=== PATIENT | male | born 1960 | race Caucasian/White ===

== ENCOUNTER 2024-08-12 16:52 | Inpatient (IN) ==
--- NOTE | 2024-08-12 17:20 | Emergency Department Note ---
Impression & Plan Hematuria ED Provider Note NAME: MEME FABIAN AGE: 64 SEX: M : 1960 ARRIVES VIA: Walk-In INFORMANT: Patient, ED PROVIDER(S): Joseph Thompson DO CHIEF COMPLAINT: Hematuria HPI: The patient is a 64-year-old male who presented to the emergency department because of hematuria. The patient had a prostate procedure 4 weeks ago with our urology group. He was having bleeding after the procedure but then started having decrease in the bleeding approximately 2 weeks ago. He had an unfortunate loss of his family pet yesterday and when he lifted the animal up he started having pain and pulling down into his perineum. He then started having significant hematuria. The patient denies having any nausea or vomiting. He denies having any fever or back pain. He initially presented to [facility] and was there since this morning receiving continuous bladder irrigation. They were unable to have urology see him there or get him transferred to our facility so the patient signed out AGAINST MEDICAL ADVICE and came to our facility. ROS: See above HPI for pertinent positives & negatives. A total of 10 systems reviewed and were otherwise negative. PAST MEDICAL HISTORY: See Below PAST SURGICAL HISTORY: See Below FAMILY HISTORY: See Below SOCIAL HISTORY: See Below HOME MEDICATIONS: See Below ALLERGIES: See Below VITALS: See Below PHYSICAL EXAMINATION: GENERAL: The patient is awake and alert. The patient is anxious appearing. EYES: The conjunctivae are clear. The pupils are round and reactive. EARS, NOSE, MOUTH AND THROAT: The nose is without any evidence of any deformity. NECK: The neck is nontender and supple. RESPIRATORY: Normal respiratory effort is noted there is no evidence of wheezing rhonchi or rales CARDIOVASCULAR: Regular rate and rhythm noted there no murmurs rubs or gallops normal S1 normal S2. GASTROINTESTINAL: The abdomen is distended. There is suprapubic tenderness to palpation but no guarding or rigidity. MUSCULOSKELETAL/EXTREMITIES: There is no evidence of gross deformity full range of motion is noted in the hips and shoulders. SKIN: Is cool and pale. There is no pedal edema. NEUROLOGIC: Patient is awake alert and oriented x3 MEDICAL DECISION MAKING: The patient is a 64-year-old male who presented to the emergency department for an evaluation of hematuria. The patient was experiencing gross hematuria. He had a urologic procedure 4 weeks ago. The patient does take Coumadin. He was seen in another emergency department and had CBI started. The patient signed out AGAINST MEDICAL ADVICE from that facility and came to our facility because of urologic backup. The patient did bring a disc with his CAT scan. This was loaded onto the synapse. I discussed the patient's laboratory results with him. I discussed his condition with urology. At this time the patient has had continued CBI with some good clearing of his urine. He was feeling much better. Vital signs are reassuring. I discussed this case with the on-call [facility] hospitalist. They have agreed to evaluate the patient in the emergency department. Triage Nursing notes reviewed. Prior medical records reviewed Vital Signs: reviewed and remarkable for no significant abnormalities Differential diagnosis: Etiologies such as appendicitis, diverticulitis, obstruction, inflammatory bowel disease, renal colic, PUD, biliary pathology, pancreatitis, mesenteric ischemia, aortic pathology, infections, genitourinary, UTI, perforated viscus, as well as others were entertained. ER treatment provided: See below Diagnostics interpreted by me: ECG: EKG was obtained in the emergency department. My interpretation is atrial paced rhythm at 60 bpm. There was no ectopy. There was no ton[place] beats noted. There was no acute ST segment abnormalities noted. Cardiac Monitoring: An order was placed for continuous cardiac monitoring. The monitor shows a rate of 60 bpm with paced rhythm. Laboratory studies: As stated above and show below. Imaging studies: See below. Consultation(s): I discussed this case with Dr. Carmona who is the patient's primary urologist. I discussed this case with Dr. Rojas who is on-call for the [facility]. Past Med/Surg History Problem List (Updated 08/12/24 @ 23:07 by Joseph Thompson DO) Hematuria (Acute) S/P TURP (status post transurethral resection of prostate) BPH w urinary obs/LUTS GERD (gastroesophageal reflux disease) Pacemaker ~2015, MATT lynn, [employer]; f/u [facility] Chronic anticoagulation Paroxysmal atrial fibrillation Gross hematuria Urinary retention due to benign prostatic hyperplasia Medical History Anxiety Hx of blood clots "told it was an outer blood clot in his leg, found ~2016" Chronic anticoagulation Urinary retention due to benign prostatic hyperplasia GERD (gastroesophageal reflux disease) Quadriplegia "legally a quadriplegic, but have all motor function and no other disabilities, w/exception of one bad hand" Constipation ongoing Kidney stone hx, no sx. Pacemaker ~2015, MATT lynn [employer]; f/u [facility] cardio Surgical History History of lumbar surgery 2008, "very low back" Hx laparoscopic cholecystectomy History of esophagogastroduodenoscopy (EGD) Hx of colonoscopy Hx of bilateral cataract extraction S/P cardiac pacemaker procedure ~2015, [facility] Hx of cardiac cath ~03/2024, SOB, [facility] [place], no stents; f/u [facility] cardio. Hx of cervical spine surgery in , multiple sx from neck fracture Family History Other No significant family history Social History Smoking Status: Current every day smoker Tobacco Type: Smokeless Tobacco (Dip or Chew) Second Hand Exposure: Yes (hx); Do You Dip or Chew Tobacco: Yes (advised); Hx Alcohol Use: Yes Alcohol type: beer Hx Substance Use: No Preferred Language: Malagasy Communication Ability: Effective Pharmacy Informatics Manager Required: No Beliefs That Will Affect Care: None Current Living Situation: Alone Feels Safe at Home: Yes Assistive Devices: None Allergies Allergies Allergy/AdvReac Type Severity Reaction Status Date / Time No Known Allergies Allergy Verified 08/12/24 19:49 Home Meds Home Medications Medication Instructions Recorded Confirmed warfarin 5 mg tablet 5 mg PO QPM 01/21/20 08/12/24 zolpidem 10 mg tablet 10 mg PO HS Sleep 01/21/20 08/12/24 buspirone 5 mg tablet 5 mg PO AMHS 07/09/24 08/12/24 famotidine 20 mg tablet 20 mg PO AMHS 07/09/24 08/12/24 metoprolol succinate 25 mg 25 mg PO AMPM 07/09/24 08/12/24 tablet,extended release 24 hr cyclobenzaprine 10 mg tablet 10 mg PO TID PRN Spasms 08/12/24 08/12/24 Results & Data (ED) Vital Signs Vital Signs - 24 hr 08/12/24 17:03 08/12/24 17:39 08/12/24 17:39 Temperature 36.4 C L Temperature Source Temporal Artery Scan Pulse Rate 60 78 Pulse Rate [Right Finger] 78 Respiratory Rate 18 18 18 Respiratory Effort / Characteristics Non-Labored Spontaneous Blood Pressure 89/61 L Blood Pressure [Left Arm] 150/86 H Blood Pressure Mean 70 Blood Pressure Mean [Left Arm] 107 Blood Pressure Position [Left Arm] Lying Pulse Oximetry 100 94 94 Oxygen Delivery Method Room Air Room Air Room Air Sepsis New/Unexplained Change in Mental Status No Sepsis Action Taken by Nursing No Action Required 08/12/24 19:00 Temperature Temperature Source Pulse Rate Pulse Rate [Right Finger] 60 Respiratory Rate 18 Respiratory Effort / Characteristics Non-Labored Spontaneous Blood Pressure Blood Pressure [Left Arm] 121/73 Blood Pressure Mean Blood Pressure Mean [Left Arm] 89 Blood Pressure Position [Left Arm] Lying Pulse Oximetry 94 Oxygen Delivery Method Room Air Sepsis New/Unexplained Change in Mental Status Sepsis Action Taken by Assisted Medications Current Medication List: was personally reviewed by me Laboratory Data Attestation: I reviewed the patient's lab results. 08/12/24 17:17 08/12/24 17:17 Lab Results 08/12/24 08/12/24 08/12/24 Range/Units 17:17 17:17 17:17 WBC 9.65 (4.8-10.8) K/ul RBC 4.71 (4.70-6.10) M/uL Hgb 14.0 (14.0-18.0) g/dl Hct 41.1 L (42.0-52.0) % MCV 87.3 (80.0-100.0) fL MCH 29.7 (25.0-34.0) pg MCHC 34.1 (32.0-36.0) g/dL RDW Std Deviation 39.7 (36.4-46.3) fL RDW Coeff of Rodriguez 12.3 (11.5-14.5) % Plt Count 222 (130-400) K/uL MPV 10.6 (9.4-12.4) fL Immature Gran % (Auto) 0.3 % Neut % (Auto) 68.1 % Lymph % (Auto) 18.5 % Esmeralda % (Auto) 11.6 % Eos % (Auto) 1.3 % Baso % (Auto) 0.2 % Neut # (Auto) 6.56 H (1.40-6.50) K/uL Lymph # (Auto) 1.79 (1.20-3.40) K/uL Esmeralda # (Auto) 1.12 H (0.11-0.59) K/uL Eos # (Auto) 0.13 (0.00-0.50) K/uL Baso # (Auto) 0.02 (0.00-0.20) K/uL Immature Gran # (Auto) 0.03 (0.01-0.20) K/uL PT 30.7 H (9.0-12.0) Seconds INR 3.1 H (0.9-1.1) APTT 37 H (21-31) Seconds PTT Ratio 1.4 Sodium 138 (136-145) mmol/L Potassium 3.5 (3.5-5.1) mmol/L Chloride 103 (98-107) mmol/L Carbon Dioxide 27 (21-32) mmol/L Anion Gap 8 (3-11) BUN 15 (6-23) mg/dl Creatinine 0.80 (0.6-1.4) mg/dl Est Cr Clr Drug Dosing 82.0 ml/min Est GFR ( Amer) 107.9 ml/min Est GFR (Non-Af Amer) 93.1 ml/min BUN/Creatinine Ratio 18.8 (10-20) Glucose 122 H (70-99(Fasting)) mg/dl Calcium 9.5 (8.6-10.3) mg/dl Total Bilirubin 0.9 (0.2-1.0) mg/dl AST 19 (13-39) U/L ALT 12 (7-52) U/L Alkaline Phosphatase 87 (34-104) U/L Troponin I High Sens < 2.3 (0-20) pg/ml Total Protein 6.8 (6.0-8.3) gm/dl Albumin 4.1 (3.4-5.0) gm/dl Globulin 2.7 (2.5-4.0) gm/dl Albumin/Globulin Ratio 1.5 (0.9-2) Lipase 20 (11-82) U/L Blood Type A Positive Cancelled Antibody Screen NEGATIVE Cancelled Administered Medications Famotidine (Famotidine 20 Mg Tab) 20 mg PO BID LIDIA Stop: 10/24/24 22:14 Last Admin: 08/12/24 22:43 Dose: 20 mg Documented By: MARGARET Potassium Chloride/Sodium Chloride (Normal Saline W/20 Meq Kcl) 20 meq in 1,000 mls @ 80 mls/hr IV .[id number] LIDIA Stop: 08/13/24 08:29 Last Admin: 08/12/24 20:54 Dose: 80 mls/hr Documented By: MARGARET Discontinued Medications Sodium Chloride (Nss) 1,000 mls @ 999 mls/hr IV .[id number] STA Stop: 08/12/24 18:16 Last Infusion: 08/12/24 22:17 Dose: Infused Documented By: Admin: 08/12/24 18:20 Dose: 999 mls/hr Documented By: JOSE ANGEL Ceftriaxone Sodium (Rocephin) 2,000 mg in 50 mls @ 100 mls/hr IV NOW STA Stop: 08/12/24 20:20 Last Infusion: 08/12/24 22:18 Dose: Infused Documented By: Admin: 08/12/24 21:00 Dose: 100 mls/hr Documented By: MARGARET Morphine Sulfate (Morphine Sulfate 4 Mg/Ml 1 Ml Carp\\Vial) 4 mg IV NOW STA Stop: 08/12/24 18:08 Last Admin: 08/12/24 18:19 Dose: 4 mg Documented By: JOSE ANGEL Ondansetron HCl (Ondansetron Inj 2 Mg/Ml 2 Ml Vial) 4 mg IV NOW STA Stop: 08/12/24 18:08 Last Admin: 08/12/24 18:19 Dose: 4 mg Documented By: JOSE ANGEL Imaging Data Attestation: I personally reviewed and interpreted this imaging study as follows: My Impression: 1 view chest x-ray was obtained in the emergency department. My interpretation is no free air or definite infiltrate, final report below. X-ray of the abdomen was obtained. My interpretation is no free air or signs of bowel obstruction, final report below. Radiologist's Impression: Chest X-Ray 08/12/24 17:16 XR chest 1V portable CLINICAL HISTORY: abd pain TECHNIQUE: Single frontal radiograph of the chest was obtained. Comparison: Comparison is made to chest radiograph 07/02/2024 FINDINGS: An implanted pacemaker is seen. The cardiomediastinal silhouette is normal. The lungs are clear. No evidence of pleural effusion or pneumothorax. IMPRESSION: No acute chest disease. ACT 112: Negative or not required by law. Electronically signed by: Slava Huber M.D. 08/12/2024 6:02 PM KUB X-Ray 08/12/24 17:16 XR KUB/Abdomen 1 view CLINICAL HISTORY: abd pain TECHNIQUE: 1 view of the abdomen was obtained. Comparison: None available at the time of this dictation. FINDINGS: Lung bases are unremarkable. Degenerative changes are seen in the visualized skeleton. Posterior fixation hardware is seen. The bowel gas pattern is nonobstructive. A moderate amount of stool is noted within the large bowel. IMPRESSION: Nonobstructive bowel gas pattern. ACT 112: Negative or not required by law. Electronically signed by: Slava Huber M.D. 08/12/2024 6:08 PM Discharge Plan Visit Data Chief Complaint: Hematuria Stated Complaint: bleeding in bladder ED Provider: Joseph Thompson Discharge Problem: Hematuria Patient Disposition: Admitted As Inpatient Discharge Instructions Interventions: ED Discharge Assessment Last Done: 08/12/24 22:15 Discharge Problem: Hematuria Qualifiers: Hematuria type: gross Qualified Code(s): R31.0 - Gross hematuria
[2024-08-12 17:43] LABS: Basophils # (auto) 0.02 K/uL (0.00-0.20); Basophils % (auto) 0.2 %; Eosinophils # (auto) 0.13 K/uL (0.00-0.50); Eosinophils % (auto) 1.3 %; Hematocrit (blood only) 41.1 % (42.0-52.0); Immature Granulocytes # (auto) 0.03 K/uL (0.01-0.20); Immature Granulocytes % (auto) 0.3 %; Lymphocytes # (auto) 1.79 K/uL (1.20-3.40); Lymphocytes % (auto) 18.5 %; Mean Corpuscular Hemoglobin 29.7 pg (25.0-34.0); Mean Corpuscular Hgb Conc 34.1 g/dL (32.0-36.0); Mean Corpuscular Volume 87.3 fL (80.0-100.0); Mean Platelet Volume 10.6 fL (9.4-12.4); Monocytes # (auto) 1.12 K/uL (0.11-0.59); Monocytes % (auto) 11.6 %; Neutrophils # (auto) 6.56 K/uL (1.40-6.50); Neutrophils % (auto) 68.1 %; Platelet Count 222 K/uL (130-400); RDW Coefficient of Variation 12.3 % (11.5-14.5); RDW Standard Deviation 39.7 fL (36.4-46.3); Red Blood Count 4.71 M/uL (4.70-6.10); White Blood Count 9.65 K/ul (4.8-10.8)
[2024-08-12 17:58] LABS: Alanine Aminotransferase 12 U/L (7-52); Albumin Globulin Ratio 1.5 (0.9-2); Albumin Level 4.1 gm/dl (3.4-5.0); Alkaline Phosphatase 87 U/L (34-104); Anion Gap 8 (3-11); Aspartate Aminotransferase 19 U/L (13-39); BUN Creatinine Ratio 18.8 (10-20); Bilirubin,Total 0.9 mg/dl (0.2-1.0); Blood Urea Nitrogen 15 mg/dl (6-23); Calcium 9.5 mg/dl (8.6-10.3); Carbon Dioxide 27 mmol/L (21-32); Chloride 103 mmol/L (98-107); Est GFR (African American) 107.9 ml/min; Est GFR (Non-African American) 93.1 ml/min; Globulin 2.7 gm/dl (2.5-4.0); Glucose 122 mg/dl (70-99(Fasting)); Lipase 20 U/L (11-82); Potassium 3.5 mmol/L (3.5-5.1); Sodium 138 mmol/L (136-145); Total Protein 6.8 gm/dl (6.0-8.3)
[2024-08-12 18:03] LABS: Troponin I High Sensitivity < 2.3 pg/ml (0-20)
--- NOTE | 2024-08-12 18:04 | XRay Report ---
XR chest 1V portable CLINICAL HISTORY: abd pain TECHNIQUE: Single frontal radiograph of the chest was obtained. Comparison: Comparison is made to chest radiograph 07/02/2024 FINDINGS: An implanted pacemaker is seen. The cardiomediastinal silhouette is normal. The lungs are clear. No e vidence of pleural effusion or pneumothorax. IMPRESSION: No acute chest disease. ACT 112: Negative or not required by law. Electronically signed by: Slava Huber M.D. 08/12/2024 6:02 PM
--- NOTE | 2024-08-12 18:10 | XRay Report ---
XR KUB/Abdomen 1 view CLINICAL HISTORY: abd pain TECHNIQUE: 1 view of the abdomen was obtained. Comparison: None available at the time of this dictation. FINDINGS: Lung bases are unremarkable. Degenerative changes are seen in the visualized skeleton. Posterior fixa tion hardware is seen. The bowel gas pattern is nonobstructive. A moderate amount of stool is noted w ithin the large bowel. IMPRESSION: Nonobstructive bowel gas pattern. ACT 112: Negative or not required by law. Electronically signed by: Slava Huber M.D. 08/12/2024 6:08 PM
[2024-08-12 18:14] LABS: INR 3.1 (0.9-1.1); Partial Thromboplastin Ratio 1.4; Partial Thromboplastin Time 37 Seconds (21-31); Prothrombin Time 30.7 Seconds (9.0-12.0)
[2024-08-12] MEDS: ONDANSETRON INJ 2 MG/ML 2 ML VIAL IV STA (18:19)
[2024-08-12] MEDS: MoRPHine SULFATE 4 MG/ML 1 ML CARP\\VIAL IV STA (18:19)
[2024-08-12] MEDS: SODIUM CHLORIDE 0.9% 1,000 ML IV STA (18:20)
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
[2024-08-12] MEDS: NSS + 20MEQ KCL 20 MEQ/1,000 ML BAG IV SCH (20:54)
[2024-08-12] MEDS: cefTRIAXone SODIUM 2,000 MG/50 ML BAG IV STA (21:00)
[2024-08-12] MEDS ORDERED: ONDANSETRON INJ 2 MG/ML 2 ML VIAL IV PRN (22:15)
[2024-08-12] MEDS ORDERED: ACETAMINOPHEN 325 MG TAB PO PRN (22:15)
[2024-08-12] MEDS: FAMOTIDINE 20 MG TAB PO SCH (22:43)
[2024-08-12] MEDS: ZOLPIDEM TARTRATE 5 MG TAB PO SCH (23:09)
[2024-08-12] MEDS: busPIRone 5 MG TAB PO SCH (23:09)
[2024-08-13 04:41] LABS: Basophils # (auto) 0.02 K/uL (0.00-0.20); Basophils % (auto) 0.3 %; Eosinophils # (auto) 0.11 K/uL (0.00-0.50); Eosinophils % (auto) 1.6 %; Hematocrit (blood only) 35.2 % (42.0-52.0); Immature Granulocytes # (auto) 0.02 K/uL (0.01-0.20); Immature Granulocytes % (auto) 0.3 %; Lymphocytes # (auto) 1.55 K/uL (1.20-3.40); Mean Corpuscular Hemoglobin 30.3 pg (25.0-34.0); Mean Corpuscular Hgb Conc 34.1 g/dL (32.0-36.0); Mean Corpuscular Volume 88.9 fL (80.0-100.0); Mean Platelet Volume 11.1 fL (9.4-12.4); Monocytes # (auto) 0.89 K/uL (0.11-0.59); Monocytes % (auto) 13.2 %; Neutrophils # (auto) 4.14 K/uL (1.40-6.50); Neutrophils % (auto) 61.6 %; Platelet Count 182 K/uL (130-400); RDW Coefficient of Variation 12.5 % (11.5-14.5); RDW Standard Deviation 40.9 fL (36.4-46.3); Red Blood Count 3.96 M/uL (4.70-6.10); White Blood Count 6.73 K/ul (4.8-10.8)
[2024-08-13 04:58] LABS: Albumin Level 3.5 gm/dl (3.4-5.0); BUN Creatinine Ratio 17.8 (10-20); Calcium 8.4 mg/dl (8.6-10.3); Creatinine Clr Calc Pharmacy 89.8 ml/min; Est GFR (Non-African American) 96.7 ml/min; Magnesium 1.9 mg/dl (1.7-2.4); Phosphorus 2.9 mg/dl (2.5-4.9); Potassium 3.6 mmol/L (3.5-5.1)
[2024-08-13] MEDS: MoRPHine SULFATE 2 MG/ML CARP IV PRN (05:34)
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
[2024-08-13] MEDS: cefTRIAXone SODIUM 2,000 MG/50 ML BAG IV SCH (08:29)
[2024-08-13] MEDS: METOPROLOL SUCC 25MG EXT REL TAB PO SCH (08:29)
[2024-08-13] MEDS: PANTOprazole 40 MG TAB PO SCH (08:29)
[2024-08-13] MEDS: MoRPHine SULFATE 4 MG/ML 1 ML CARP\\VIAL IV PRN (08:33)
[2024-08-13 10:21] LABS: Appearance Urine Cloudy (Clear); Bacteria Urine Automated None Seen (None Seen); Bilirubin Urine Negative (Negative); Blood Urine 3+ (Negative); Cast Urine Automated 0-2 /lpf (0-2); Color Urine Red; Epithelial Cell Urine Auto 0-2 /hpf (0-2); Glucose Urine UA Negative (Negative); Ketones Urine Negative (Negative); Leukocyte Esterase Urine 2+ (Negative); Nitrite Urine Negative (Negative); Protein Urine 2+ (Negative); RBC Urine Automated >20 /hpf (0-2); Specific Gravity Urine 1.006 (1.000-1.030); Urobilinogen Urine Negative (Negative)
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
[2024-08-13 11:13] LABS: INR 3.3 (0.9-1.1); Prothrombin Time 31.8 Seconds (9.0-12.0)
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
--- NOTE | 2024-08-14 06:36 | Electrocardiogram Report ---
Test Reason : Blood Pressure : */* mmHG Vent. Rate : 60 BPM Atrial Rate : 60 BPM P-R Int : 156 ms QRS Dur : 80 ms QT Int : 422 ms P-R-T Axes : * 4 20 degrees QTcB Int : 422 ms Atrial-paced rhythm Nonspecific ST abnormality Abnormal ECG When compared with ECG of 02-Jul-2024 12:15, No significant change was found Confirmed by Gautam Gilbert ([id number]) on 08/14/2024 6:36:06 AM Referred By: REFERRED SELF Confirmed By: Gautam Gilbert
[2024-08-14 07:07] LABS: Basophils # (auto) 0.03 K/uL (0.00-0.20); Basophils % (auto) 0.5 %; Eosinophils # (auto) 0.17 K/uL (0.00-0.50); Eosinophils % (auto) 2.8 %; Hematocrit (blood only) 36.4 % (42.0-52.0); Hemoglobin 12.2 g/dl (14.0-18.0); Immature Granulocytes # (auto) 0.02 K/uL (0.01-0.20); Immature Granulocytes % (auto) 0.3 %; Lymphocytes # (auto) 1.36 K/uL (1.20-3.40); Lymphocytes % (auto) 22.5 %; Mean Corpuscular Hemoglobin 29.8 pg (25.0-34.0); Mean Corpuscular Hgb Conc 33.5 g/dL (32.0-36.0); Mean Corpuscular Volume 88.8 fL (80.0-100.0); Mean Platelet Volume 10.8 fL (9.4-12.4); Monocytes % (auto) 13.2 %; Neutrophils # (auto) 3.67 K/uL (1.40-6.50); Neutrophils % (auto) 60.7 %; Platelet Count 191 K/uL (130-400); RDW Coefficient of Variation 12.4 % (11.5-14.5); RDW Standard Deviation 40.6 fL (36.4-46.3); White Blood Count 6.05 K/ul (4.8-10.8)
[2024-08-14 07:19] LABS: INR 2.4 (0.9-1.1); Prothrombin Time 24.1 Seconds (9.0-12.0)
[2024-08-14] MEDS ORDERED: bisacodyL 10 MG SUPP PR PRN (07:47)
--- NOTE | 2024-08-14 07:47 | Urology Progress Note ---
Date of Service August 14, 2024 Assessment & Plan (1) Hematuria: (2) S/P TURP (status post transurethral resection of prostate): (3) BPH w urinary obs/LUTS: Plan: Admitted with hematuria/clot retention He is afebrile and hemodynamically stable Labs today reviewedhemoglobin stable at 12.2, no leukocytosis, INR 2.4 Ramirez required manual irrigation early this morning with return of a clot Ramirez is patent and draining clear with CBI on slow, CBI clamped at bedside Okay to gently hand irrigate catheter as needed for suprapubic discomfort or clot retention No plans for surgical intervention Continue to titrate CBI and ultimately remove his catheter before discharge home Admission and Anticipated Discharge Date Admission Date: August 12, 2024 Subjective Patient awake and resting in bed. He reports bladder fullness this morning and his catheter was manually irrigated by slot shift manager nurse with return of clot. He reports bladder discomfort and pressure has resolved. Ramirez is patent and draining clear with CBI on slow. CBI clamped during exam. Denies nausea, vomiting, fever or chills. Review of Systems Constitutional: as per Subjective / HPI Genitourinary: + as per Subjective / HPI Physical Exam Constitutional: well developed and well nourished; no acute distress Respiratory: normal respiratory effort; no respiratory distress and no labored breathing Gastrointestinal (Abdomen): Inspection/Auscultation: abdomen normal to inspection Musculoskeletal: Head/Neck/Chest: normocephalic Neurologic: moves all extremities and awake Psychiatric: Orientation: alert and oriented x 3 Genitourinary: Ramirez is patent and draining clear with CBI on slow. CBI clamped during exam. Results & Data Vital Signs (Past 12 Hours) Vital Signs Temp Pulse Resp BP Pulse Ox O2 Del Method 08/13/24 21:06 36.8 C 60 12 144/86 H 95 Room Air PG Care Time/CCT Total # of Minutes Spent Total Time Spent with Patient: Total time spent is greater than 50% in coordination of care (as documented) at patient's floor/unit and/or counseling patient: Coding Level of Care Code 30314 SUB INP/OBS CARE 25MIN Diagnoses Hematuria R31.0 Hematuria type: gross S/P TURP (status post transurethral resection of prostate) Z90.79 BPH w urinary obs/LUTS N40.1; N13.8 (1) Hematuria Hematuria type: gross Qualified Code(s): R31.0 - Gross hematuria
[2024-08-14 08:51] LABS: Albumin Level 3.7 gm/dl (3.4-5.0)
[2024-08-14 08:57] LABS: BUN Creatinine Ratio 11.4 (10-20); Est GFR (African American) 108.5 ml/min; Est GFR (Non-African American) 93.6 ml/min; Phosphorus 2.9 mg/dl (2.5-4.9)
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
== END 2024-08-14 19:14 | disposition home or self-care (01) | DRG 919 ==
LOC: ED 16:52 → EDINP 20:00 → SUATTDRO 20:00 → 3W 22:15
DX: R42 Dizziness and giddiness; K59.09 Other constipation; N40.0 Benign prostatic hyperplasia without lower urinary tract symptoms; R31.0 Gross hematuria; Z90.79 Acquired absence of other genital organ(s); I48.0 Paroxysmal atrial fibrillation; K21.9 Gastro-esophageal reflux disease without esophagitis; K59.2 Neurogenic bowel, not elsewhere classified; Z79.01 Long term (current) use of anticoagulants; Z95.0 Presence of cardiac pacemaker; N99.820 Postprocedural hemorrhage of a genitourinary system organ or structure following a genitourinary system procedure; I49.5 Sick sinus syndrome; G82.50 Quadriplegia, unspecified